=== PATIENT | female | born 1940 | race Caucasian/White ===

== ENCOUNTER 2018-12-24 05:35 | Inpatient (IN) | payer MEDICARE, OTHER ==
[~2018-12-24] VITALS: Ht 180.3 cm; Wt 79.4 kg
[2018-12-24] MEDS ORDERED: ALLO100 PO (06:15)
[2018-12-24] MEDS ORDERED: Zocor20 MG PO (06:16)
[2018-12-24] MEDS ORDERED: ASPI81CH PO (06:16)
[2018-12-24] MEDS ORDERED: LISI5 PO (06:16)
[2018-12-24] MEDS ORDERED: LEVSOD50 PO (06:16)
[2018-12-24] MEDS ORDERED: CARV6.25 PO (06:17)
[2018-12-24] MEDS ORDERED: OMEPRAZOLE MAGN20 MG PO (06:18)
[2018-12-24] MEDS ORDERED: SEVEC800 (06:18)
[2018-12-24] MEDS ORDERED: BISA10S PR (06:18)
[2018-12-24 06:38] LABS: BASOPHILS PERCENT AUTO 0 % (0-2); EOSINOPHILS ABSOLUTE AUTO 0.01 K/mm3 (0.00-0.68); EOSINOPHILS PERCENT AUTO 0 % (0-6); Hematocrit 29.5 % (33.0-51.0); Hemoglobin 9.5 g/dL (11.5-16.0); IMMATURE GRAN ABSOLUTE AUTO 0.02 K/mm3 (0.00-0.10); IMMATURE GRAN PERCENT AUTO 0 % (0-1); LYMPHOCYTES ABSOLUTE AUTO 0.58 K/mm3 (0.84-5.20); LYMPHOCYTES PERCENT AUTO 11 % (21-46); MONOCYTES ABSOLUTE AUTO 0.41 K/mm3 (0.16-1.47); MONOCYTES PERCENT AUTO 8 % (4-13); Mean Corpuscular HGB 32.2 pg (26.0-34.0); Mean Corpuscular HGB Conc 32.2 g/dL (31.5-36.5); Mean Corpuscular Volume 100 fL (80-100); Mean Platelet Volume 9.7 fL (9.1-12.4); NEUTROPHILS ABSOLUTE AUTO 4.13 K/mm3 (1.96-9.15); NEUTROPHILS PERCENT AUTO 80 % (41-73); Platelet Count 129 K/mm3 (150-400); RDW Coefficient Variation 15.6 % (11.7-14.2); RDW Standard Deviation 57.1 fL (35.1-46.3); Red Blood Cell Count 2.95 M/mm3 (3.80-5.20); White Blood Cell Count 5.15 K/mm3 (4.00-11.30)
[2018-12-24 06:52] LABS: International Normalized Ratio 1.1; Prothrombin Time Results 11.6 Sec (9.7-11.5)
[2018-12-24 06:59] LABS: Troponin I <0.015 ng/mL (0.000-0.040)
[2018-12-24 07:00] LABS: Alanine Aminotransfer (ALT/SGP 15 U/L (12-78); Albumin, Blood 3.2 g/dL (3.4-5.0); Albumin/Globulin Ratio 1.1 (0.8-1.8); Alk Phos 78 U/L (50-136); Anion Gap 5 mmol/L (6-16); Aspartate Aminotrans (AST/SGOT 13 U/L (12-37); Bilirubin, Total 0.8 mg/dL (0.1-1.0); Blood Urea Nitrogen 20 mg/dL (8-24); Bun/Creatinine Ratio 6.7 (12.0-20.0); CO2, Blood 35 mmol/L (21-32); Calcium, Blood 9.7 mg/dL (8.5-10.1); Chloride, Blood 95 mmol/L (98-108); Creatinine, Blood 2.97 mg/dL (0.40-1.00); Glomerular Filtration Rate 16 (60-); Glucose, Blood 133 mg/dL (70-99); Potassium, Blood 4.7 mmol/L (3.5-5.5); Sodium, Blood 135 mmol/L (136-145); Total Protein, Blood 6.2 g/dL (6.4-8.2)
[2018-12-24] MEDS ORDERED: TRAM50 PO (12:04)
--- NOTE | 2018-12-24 14:44 | NUR ---
NOTIFIED DR. RODARTE OF UNSUCCESSFUL [facility] CATHETER PLACEMENT. NEW ORDER TO BLADDER SCAN LATER THIS EVENING.
--- NOTE | 2018-12-24 16:45 | NUR ---
SHIFT SUMMARY NEW ER ADMIT THIS SHIFT WITH R FEMUR FX R/T FALL AND NEEDING DIALYSIS FOR RENAL FAILURE. PT ALERT AND ORIENTED. DENIES PAIN AT REST AND DENIES PAIN MEDICATION. MEDICATED WITH ZOFRAN X1 FOR NAUSEA. DR. ALEX CONSULTED ON PT. NO SURGERY FOR TODAY PLANNED. DR. RODARTE ALSO SAW PT TODAY. PLAN IS FOR POSSIBLE DIALYSIS TOMORROW. FISTULA TO L ARM WNL. THRILL AND BRUIT PRESENT. IV IS SL. PT DOES HAVE A PACEMAKER AND IS ON TELE. [facility] PLACEMENT UNSUCCESSFUL, BUT PT WAS ABLE TO VOID SPONTANEOUSLY ON BEDPAN. ATTENDS IN PLACE. CALL LIGHT WITHIN REACH. WILL CONT TO MONITOR.
--- NOTE | 2018-12-24 18:06 | NUR ---
DR. ALEX IN TO CONSULT ON PT AND REPORTS FX IS NON SURGICAL.
[2018-12-25 04:33] LABS: BASOPHILS PERCENT AUTO 0 % (0-2); EOSINOPHILS PERCENT AUTO 0 % (0-6); Hematocrit 29.9 % (33.0-51.0); Hemoglobin 9.7 g/dL (11.5-16.0); IMMATURE GRAN ABSOLUTE AUTO 0.01 K/mm3 (0.00-0.10); IMMATURE GRAN PERCENT AUTO 0 % (0-1); LYMPHOCYTES ABSOLUTE AUTO 0.74 K/mm3 (0.84-5.20); LYMPHOCYTES PERCENT AUTO 16 % (21-46); MONOCYTES ABSOLUTE AUTO 0.56 K/mm3 (0.16-1.47); MONOCYTES PERCENT AUTO 12 % (4-13); Mean Corpuscular HGB Conc 32.4 g/dL (31.5-36.5); Mean Corpuscular Volume 102 fL (80-100); Mean Platelet Volume 9.7 fL (9.1-12.4); NEUTROPHILS ABSOLUTE AUTO 3.45 K/mm3 (1.96-9.15); NEUTROPHILS PERCENT AUTO 73 % (41-73); Platelet Count 126 K/mm3 (150-400); RDW Coefficient Variation 15.7 % (11.7-14.2); RDW Standard Deviation 57.7 fL (35.1-46.3); Red Blood Cell Count 2.94 M/mm3 (3.80-5.20); White Blood Cell Count 4.76 K/mm3 (4.00-11.30)
[2018-12-25 04:51] LABS: Magnesium, Blood 1.9 mg/dL (1.6-2.4)
[2018-12-25 04:52] LABS: Anion Gap 7 mmol/L (6-16); Blood Urea Nitrogen 27 mg/dL (8-24); Bun/Creatinine Ratio 7.4 (12.0-20.0); CO2, Blood 34 mmol/L (21-32); Calcium, Blood 9.7 mg/dL (8.5-10.1); Chloride, Blood 94 mmol/L (98-108); Creatinine, Blood 3.65 mg/dL (0.40-1.00); Glomerular Filtration Rate 13 (60-); Glucose, Blood 94 mg/dL (70-99); Phosphorus, Blood 4.2 mg/dL (2.5-4.9); Potassium, Blood 4.8 mmol/L (3.5-5.5); Sodium, Blood 135 mmol/L (136-145)
--- NOTE | 2018-12-25 06:33 | NUR ---
AM LABS: NEW STAT LAB ORDER CLARIFIED W/DR RODARTE. NEW ORDER TO CANCEL STAT LABS AM LABS HAVE ALREADY BEEN COLLECTED.
--- NOTE | 2018-12-25 06:35 | NUR ---
PT HAD NO ACUTE CHANGES T/O NIGHT; VSS. PT REP PAIN BLAIR AT REST, DOES BECOME PAINFUL W/MVMT. PT BLAIR PO FLUIDS, IS INCONTINENT AT TIMES, USES BEDPAN W/ASSIST. PT REPOSITIONING SELF IN BED W/ASSISTANCE. PT APPEARED SOMEWHAT FORGETFUL DURING NIGHT, REORIENTED EASILY. BED ALARM ON FOR SAFETY. WILL CONT TO MONITOR UNTIL REP GIVEN TO ONCOMING RN.
--- NOTE | 2018-12-25 10:47 | NUR ---
pt to dialysis
--- NOTE | 2018-12-25 13:39 | NUR ---
back from dialysis resting w/eyes closed. breathing e/u.
--- NOTE | 2018-12-25 16:03 | NUR ---
DAUGHTER REPORTED PT HAD PRESSURE SORE TO BUTTOCKS PRIOR TO ADMIT PHOTOGRAPHED AND CHARTED W/PT'S PERMISSION PLACED PROTECTIVE MEPILEX.
--- NOTE | 2018-12-25 17:51 | NUR ---
SUMMARY NO ACUTE CHANGES T/O SHIFT. PT HAD DIALYSIS THIS SHIFT. REPOSITIONS SELF WELL IN BED, TURNING SIDE TO SIDE. MEDICATED ONCE DURING SHIFT FOR RLE PAIN. PT REPORTED HAS DIZZINESS WHEN TURNS HEAD SIDE TO SIDE. REPORTED TO DR CORMIER; ORDERS OBTAINED. THERAPY POSTPONED UNTIL TOMORROW PER DR CORMIER'S REQUEST. PT HAS SMALL DECUB ON L BUTTOCK; DAUGHTER REPORTED HAD PRIOR TO ADMIT. PHOTOGRAPHED AND PLACED MEPILEX. PT PLEASANT AND COOPERATIVE. CALL LIGHT IN REACH.
--- NOTE | 2018-12-25 19:17 | NUR ---
report given to oncoming shift.
[2018-12-26 05:27] LABS: Hematocrit 27.4 % (33.0-51.0)
[2018-12-26 05:47] LABS: Albumin, Blood 2.8 g/dL (3.4-5.0); Anion Gap 4 mmol/L (6-16); Blood Urea Nitrogen 25 mg/dL (8-24); Bun/Creatinine Ratio 7.4 (12.0-20.0); CO2, Blood 34 mmol/L (21-32); Calcium, Blood 9.3 mg/dL (8.5-10.1); Chloride, Blood 94 mmol/L (98-108); Creatinine, Blood 3.38 mg/dL (0.40-1.00); Glomerular Filtration Rate 14 (60-); Glucose, Blood 83 mg/dL (70-99); Magnesium, Blood 1.8 mg/dL (1.6-2.4); Phosphorus, Blood 3.5 mg/dL (2.5-4.9); Potassium, Blood 4.4 mmol/L (3.5-5.5); Sodium, Blood 132 mmol/L (136-145)
--- NOTE | 2018-12-26 07:40 | NUR ---
SHIFT SUMMARY LYING IN LOW FOWLERS WITH EYES CLOSED. DENIES PAIN, DISCOMFORT, OR FURTHER NEEDS AT THIS TIME. NO FURTHER CHANGES SINCE START OF SHIFT. SAFETY MEASURES IN PLACE. WILL GIVE HAND OFF TO ONCOMING SHIFT USING SBAR.
[2018-12-26 08:11] LABS: HBSAG SCREEN Negative (Negative); HEP A AB, IGM Negative (Negative); HEP B CORE AB, IGM Negative (Negative); HEP C VIRUS AB <0.1 (0.0-0.9)
--- NOTE | 2018-12-26 13:03 | NUR ---
ASSISTED PT BACK TO BED. MAX TWO PERSON ASSIST W/GAIT BELT AND FWW. NOW IN BED W/BED ALARM ON AND CALL LIGHT IN REACH.
--- NOTE | 2018-12-26 18:32 | NUR ---
SHIFT SUMMARY PT UP IN CHAIR FOR BREAKFAST IN LUNCH TODAY. MAX 2 PERSON ASSIST WITH FWW AND GAIT BELT. NEEDS DIRECTION WITH FWW USE AND OOB. BED ALARM ON AND CALL LIGHT WITHIN REACH. PLEASANT AND COOPERATIVE.
[2018-12-27 05:25] LABS: BASOPHILS ABSOLUTE AUTO 0.01 K/mm3 (0.00-0.23); BASOPHILS PERCENT AUTO 0 % (0-2); EOSINOPHILS ABSOLUTE AUTO 0.03 K/mm3 (0.00-0.68); EOSINOPHILS PERCENT AUTO 1 % (0-6); Hematocrit 27.1 % (33.0-51.0); Hemoglobin 8.6 g/dL (11.5-16.0); IMMATURE GRAN ABSOLUTE AUTO 0.01 K/mm3 (0.00-0.10); IMMATURE GRAN PERCENT AUTO 0 % (0-1); LYMPHOCYTES ABSOLUTE AUTO 0.59 K/mm3 (0.84-5.20); LYMPHOCYTES PERCENT AUTO 14 % (21-46); MONOCYTES ABSOLUTE AUTO 0.36 K/mm3 (0.16-1.47); MONOCYTES PERCENT AUTO 9 % (4-13); Mean Corpuscular HGB 32.2 pg (26.0-34.0); Mean Corpuscular HGB Conc 31.7 g/dL (31.5-36.5); Mean Corpuscular Volume 102 fL (80-100); Mean Platelet Volume 9.7 fL (9.1-12.4); NEUTROPHILS ABSOLUTE AUTO 3.15 K/mm3 (1.96-9.15); NEUTROPHILS PERCENT AUTO 76 % (41-73); Platelet Count 129 K/mm3 (150-400); RDW Coefficient Variation 15.9 % (11.7-14.2); RDW Standard Deviation 58.5 fL (35.1-46.3); Red Blood Cell Count 2.67 M/mm3 (3.80-5.20); White Blood Cell Count 4.15 K/mm3 (4.00-11.30)
--- NOTE | 2018-12-27 05:32 | NUR ---
SHIFT SUMMARY: PT A&O X4 T/O SHIFT. VSS. GIVEN 100MG ULTRAM AND TYLENOL FOR PAIN PER EMAR. PT REPOSITIONED Q2. ATTENDS CHANGED ONCE. MEPILEX CDI TO COCCYX. PT 2 MAX ASSIST W/FWW. PARTIAL WB TO RIGHT LEG. PLAN FOR SNF.
[2018-12-27 05:56] LABS: Albumin, Blood 2.7 g/dL (3.4-5.0); Anion Gap 7 mmol/L (6-16); Blood Urea Nitrogen 36 mg/dL (8-24); Bun/Creatinine Ratio 8.7 (12.0-20.0); CO2, Blood 33 mmol/L (21-32); Calcium, Blood 9.4 mg/dL (8.5-10.1); Chloride, Blood 91 mmol/L (98-108); Creatinine, Blood 4.15 mg/dL (0.40-1.00); Glomerular Filtration Rate 11 (60-); Glucose, Blood 87 mg/dL (70-99); Phosphorus, Blood 3.8 mg/dL (2.5-4.9); Potassium, Blood 4.5 mmol/L (3.5-5.5); Sodium, Blood 131 mmol/L (136-145)
[2018-12-27 08:13] LABS: Percent Saturation 27.6 % (15.0-50.0)
--- NOTE | 2018-12-27 12:50 | NUR ---
PT RETURNED FROM DIALYSIS, DENIES PAIN AT THIS TIME, A&OX4, VSS, SITTING UP IN BED EATING LUNCH.
--- NOTE | 2018-12-27 16:33 | NUR ---
SHIFT SUMMARY PT A&OX4, VSS. TELE AFIB BBB OCC PACER SPIKES @ 82 BPM. DIALYSIS TODAY. PAIN MANAGED WITH ULTRAM AND TYLENOL. BLAIR PO, DENIES N&V. VOIDING BEDPAN/ATTENDS. WCTM & TX PER EMAR UNTIL REPORT GIVEN TO HUSAM ENG.
--- NOTE | 2018-12-28 05:11 | NUR ---
SHIFT SUMMARY: NO ACUTE CHANGES OVER NIGHT. A&OX4 T/O SHIFT. VSS. GIVEN ULTAM FOR C/O PAIN PER EMAR. PT HAVING DIFFICULT TIME VOIDING. INCONTINENT X2. ATTEMPTED TO VOID IN BEDPAN SEVERAL TIMES. BLADDER SCAN SHOWED 209 ML. REPOSITIONING IN BED WITH 1-2 MOD ASSIST.
[2018-12-28 05:51] LABS: Hematocrit 27.2 % (33.0-51.0); Hemoglobin 8.7 g/dL (11.5-16.0); Mean Corpuscular Volume 100 fL (80-100); Mean Platelet Volume 9.6 fL (9.1-12.4); Platelet Count 134 K/mm3 (150-400); RDW Coefficient Variation 15.7 % (11.7-14.2); RDW Standard Deviation 56.7 fL (35.1-46.3); Red Blood Cell Count 2.72 M/mm3 (3.80-5.20); White Blood Cell Count 3.94 K/mm3 (4.00-11.30)
[2018-12-28 06:09] LABS: Albumin, Blood 2.8 g/dL (3.4-5.0); Anion Gap 6 mmol/L (6-16); Blood Urea Nitrogen 29 mg/dL (8-24); Bun/Creatinine Ratio 8.3 (12.0-20.0); CO2, Blood 34 mmol/L (21-32); Calcium, Blood 9.6 mg/dL (8.5-10.1); Chloride, Blood 92 mmol/L (98-108); Creatinine, Blood 3.49 mg/dL (0.40-1.00); Glomerular Filtration Rate 13 (60-); Glucose, Blood 85 mg/dL (70-99); Potassium, Blood 4.1 mmol/L (3.5-5.5); Sodium, Blood 132 mmol/L (136-145)
--- NOTE | 2018-12-28 19:13 | NUR ---
SHIFT SUMMARY PT A&OX3, VSS. PAIN MANAGED WITH ULTRAM AND TYLENOL. STAND/PIVOT TRANSFER TO CHAIR. BLAIR PO, DENIES N&V. INCONTINENT, ATTENDS ON. REPORT GIVEN TO DORIAN ENG.
[2018-12-29 04:11] LABS: BASOPHILS PERCENT AUTO 0 % (0-2); EOSINOPHILS ABSOLUTE AUTO 0.05 K/mm3 (0.00-0.68); EOSINOPHILS PERCENT AUTO 1 % (0-6); Hematocrit 27.5 % (33.0-51.0); Hemoglobin 8.9 g/dL (11.5-16.0); IMMATURE GRAN ABSOLUTE AUTO 0.01 K/mm3 (0.00-0.10); IMMATURE GRAN PERCENT AUTO 0 % (0-1); LYMPHOCYTES ABSOLUTE AUTO 0.65 K/mm3 (0.84-5.20); LYMPHOCYTES PERCENT AUTO 13 % (21-46); MONOCYTES ABSOLUTE AUTO 0.48 K/mm3 (0.16-1.47); MONOCYTES PERCENT AUTO 10 % (4-13); Mean Corpuscular HGB 33.2 pg (26.0-34.0); Mean Corpuscular HGB Conc 32.4 g/dL (31.5-36.5); NEUTROPHILS ABSOLUTE AUTO 3.74 K/mm3 (1.96-9.15); NEUTROPHILS PERCENT AUTO 76 % (41-73); Platelet Count 128 K/mm3 (150-400); RDW Coefficient Variation 15.8 % (11.7-14.2); RDW Standard Deviation 57.9 fL (35.1-46.3); Red Blood Cell Count 2.68 M/mm3 (3.80-5.20); White Blood Cell Count 4.93 K/mm3 (4.00-11.30)
--- NOTE | 2018-12-29 04:20 | NUR ---
SHIFT SUMMARY PT A&O X4 T/O SHIFT. VSS; PT ON RA; NO ACUTE CHANGES. PT DENIED PAIN T/O SHIFT. PT SLEPT IN RECLINER PER REQUEST; REPOSITIOND T/O SHIFT; MEPILEX TO BUTTOCK. UP TO BSC X1 WITH 3 ASSIST, GAITBELT AND FWW. CALL LIGHT IN REACH; PT DEMONSTRATES USE. WCTM UNTIL REPORT TO DAY SHIFT RN.
[2018-12-29 04:21] LABS: Mean Corpuscular Volume 103 fL (80-100)
[2018-12-29 04:28] LABS: Albumin, Blood 2.7 g/dL (3.4-5.0); Anion Gap 7 mmol/L (6-16); Blood Urea Nitrogen 37 mg/dL (8-24); CO2, Blood 32 mmol/L (21-32); Calcium, Blood 9.7 mg/dL (8.5-10.1); Chloride, Blood 90 mmol/L (98-108); Creatinine, Blood 4.11 mg/dL (0.40-1.00); Glomerular Filtration Rate 11 (60-); Glucose, Blood 77 mg/dL (70-99); Phosphorus, Blood 3.6 mg/dL (2.5-4.9); Potassium, Blood 4.5 mmol/L (3.5-5.5); Sodium, Blood 129 mmol/L (136-145)
--- NOTE | 2018-12-29 14:46 | NUR ---
ASSESSMENT ASSESSMENT DOCUMENTATION BY MICHAEL STUDENT NURSE WAS REVIEWED. THIS RN AGREES WITH ASSESSMENT DOCUMENTATION. WILL CONTINUE TO MONITOR.
--- NOTE | 2018-12-29 18:08 | NUR ---
SHIFT SUMMARY THIS PATIENT WAS ADMITTED FOR A RIGHT HIP FX. PAIN HAD BEEN CONTROLED WITH NORCO AND ULTRAM. SHE WAS TAKEN TO DIALYSIS AT APPROXIMATLEY 1000. SHE IS ON RENAL DIET. RECOMMEND 2 PERSON TRANSFER IF NECESSARY, USE [facility] LIFT IF ONE IS AVAILABLE. PT HAS A DECUBITUS ULCER ON HER LEFT BUTTOCK. PT HAS A MEDIPORT. 25% WEIGHT BEARING. PENICILLIN ALLERY. TELE IN PLACE. PT HAS HAD MILD CONFUSION AFTER RECEIVING NORCO. BED ALARM IN PLACE.
--- NOTE | 2018-12-29 18:16 | NUR ---
SHIFT SUMMARY PAIN HAS BEEN MANAGED WITH ULTRAM, NORCO FOR BREAKTHROUGH PAIN. PT IS A 2 PERSON MAX ASSIST TO STAND, LIFT ASSIST FOR TRANSFERS. PT HAS BEEN ALERT AND ORIENTED FOR MOST OF THE DAY, PT SLIGHTLY CONFUSED ABOUT REASON FOR ADMISSION THIS EVENING. PT REORIENTES EASILY. BED ALARM IN PLACE. VSS. WILL MONITOR UNTIL REPORT TO ONCOMING RN.
[2018-12-30 04:29] LABS: BASOPHILS ABSOLUTE AUTO 0.02 K/mm3 (0.00-0.23); BASOPHILS PERCENT AUTO 1 % (0-2); EOSINOPHILS ABSOLUTE AUTO 0.06 K/mm3 (0.00-0.68); EOSINOPHILS PERCENT AUTO 1 % (0-6); Hematocrit 27.2 % (33.0-51.0); Hemoglobin 8.9 g/dL (11.5-16.0); IMMATURE GRAN ABSOLUTE AUTO 0.01 K/mm3 (0.00-0.10); IMMATURE GRAN PERCENT AUTO 0 % (0-1); LYMPHOCYTES ABSOLUTE AUTO 0.81 K/mm3 (0.84-5.20); LYMPHOCYTES PERCENT AUTO 19 % (21-46); MONOCYTES PERCENT AUTO 12 % (4-13); Mean Corpuscular HGB 32.4 pg (26.0-34.0); Mean Corpuscular HGB Conc 32.7 g/dL (31.5-36.5); Mean Corpuscular Volume 99 fL (80-100); Mean Platelet Volume 9.5 fL (9.1-12.4); NEUTROPHILS ABSOLUTE AUTO 2.92 K/mm3 (1.96-9.15); NEUTROPHILS PERCENT AUTO 68 % (41-73); Platelet Count 149 K/mm3 (150-400); RDW Coefficient Variation 15.5 % (11.7-14.2); RDW Standard Deviation 56.3 fL (35.1-46.3); Red Blood Cell Count 2.75 M/mm3 (3.80-5.20); White Blood Cell Count 4.32 K/mm3 (4.00-11.30)
[2018-12-30 04:52] LABS: Albumin, Blood 2.8 g/dL (3.4-5.0); Anion Gap 7 mmol/L (6-16); Blood Urea Nitrogen 32 mg/dL (8-24); Bun/Creatinine Ratio 8.7 (12.0-20.0); CO2, Blood 33 mmol/L (21-32); Calcium, Blood 9.7 mg/dL (8.5-10.1); Chloride, Blood 89 mmol/L (98-108); Creatinine, Blood 3.66 mg/dL (0.40-1.00); Glomerular Filtration Rate 13 (60-); Glucose, Blood 77 mg/dL (70-99); Phosphorus, Blood 3.3 mg/dL (2.5-4.9); Potassium, Blood 4.3 mmol/L (3.5-5.5); Sodium, Blood 129 mmol/L (136-145)
--- NOTE | 2018-12-30 06:36 | NUR ---
SHIFT SUMMARY LYING IN SEMI FOWLERS WITH EYES CLOSED. NO FURTHER CHANGES SINCE START OF SHIFT. DENIES PAIN, DISCOMFORT, OR FURTHER NEEDS AT THIS TIME, INSISTS THAT JUST HOLDING NURSINGS HAND IS ALL SHE NEEDS. WILL GIVE HAND OFF TO ONCOMING SHIFT USING SBAR.
--- NOTE | 2018-12-30 15:46 | NUR ---
DISCHARGE SUMMARY PT D/C TO [facility] AT 1520 VIA WHEELCHAIR. PLEASANT, A&0 BUT FORGETFUL AT TIMES. PT DENIED PAIN UNTIL THIS AFTERNOON, WHICH WAS THEN MANAGED BY 100MG TRAMADOL. REQUIRES 2-3 PERSON MAX ASSIST WITH CONSISTANT COACHING.
== END 2018-12-30 15:27 | DRG 535 ==
LOC: ER 05:35 → SURS 08:33
PROVIDERS: Emergency Medicine; Internal Medicine Nephrology; ADMIT Internal Medicine
PROC: 5A1D70Z Performance of Urinary Filtration, Intermittent, Less than 6 Hours Per Day (ICD-10-PCS; principal; 2018-12-24)
PROC: 5A1D70Z Performance of Urinary Filtration, Intermittent, Less than 6 Hours Per Day (ICD-10-PCS; 2018-12-26)
PROC: 5A1D70Z Performance of Urinary Filtration, Intermittent, Less than 6 Hours Per Day (ICD-10-PCS; 2018-12-28)
DX: S72.044A Nondisplaced fracture of base of neck of right femur, initial encounter for closed fracture (principal); N18.6 End stage renal disease; M97.01XA Periprosthetic fracture around internal prosthetic right hip joint, initial encounter; I13.2 Hypertensive heart and chronic kidney disease with heart failure and with stage 5 chronic kidney disease, or end stage renal disease; I50.42 Chronic combined systolic (congestive) and diastolic (congestive) heart failure; E87.1 Hypo-osmolality and hyponatremia; W19.XXXA Unspecified fall, initial encounter; E78.5 Hyperlipidemia, unspecified; E03.9 Hypothyroidism, unspecified; F32.9 Major depressive disorder, single episode, unspecified; F41.9 Anxiety disorder, unspecified; I48.2 Chronic atrial fibrillation; Z87.891 Personal history of nicotine dependence; Z91.81 History of falling; Y92.122 Bedroom in nursing home as the place of occurrence of the external cause; Z99.2 Dependence on renal dialysis; Z85.820 Personal history of malignant melanoma of skin; K21.9 Gastro-esophageal reflux disease without esophagitis; R42 Dizziness and giddiness; M10.9 Gout, unspecified; D63.1 Anemia in chronic kidney disease; E83.39 Other disorders of phosphorus metabolism
CPT/HCPCS: 36415; 51702; 70450; 71045; 72170; 73501; 73502; 73552; 73700; 80053; 80069; 80074; 82728; 83540; 83550; 83735; 83880; 84100; 84484; 85014; 85018; 85025; 85027; 85610; 86317; 93005; 93010; 96374-59; 96375-59; 97110; 97162; 97166; 97530; 97535; 99285-25; A9270-GY; J0881; J1170; J1644; J2405

== ENCOUNTER → 2019-01-02 | Outpatient (CLI) | payer MEDICARE, OTHER ==
[~2019-01-02] MED LIST: ALLO100 PO; ASPI81CH PO; BISA10S PR; CARV6.25 PO; LEVSOD50 PO; LISI5 PO; OMEPRAZOLE MAGN20 MG PO; SEVEC800; TRAM50 PO; Zocor20 MG PO
[2019-01-02 16:22] LABS: Hemoglobin 8.6 g/dL (11.5-16.0)
== END | disposition home or self-care (01) ==
LOC: LAB SHORT 16:12 → LAB 16:12
PROVIDERS: Internal Medicine Nephrology
DX: N18.6 End stage renal disease (principal); D63.1 Anemia in chronic kidney disease
CPT/HCPCS: 85014; 85018